=== PATIENT | female | born 1960 | race Caucasian/White ===

== ENCOUNTER 2018-02-06 14:03 | Emergency (ER) | payer BC, SELFPAY ==
[2018-02-06 14:04] VITALS: BP 122/75; PULSE 88; RESP 14; TEMP 36.4; O2SAT 100; BMI 23.0
--- NOTE | 2018-02-06 14:37 | RAD_ITS ---
STUDY: X-RAY - RIGHT ELBOW REASON FOR EXAM: Female, 57 years old. Pain and swelling following a bug bite. TECHNIQUE: 3 view(s) of the elbow. COMPARISON: None. FINDINGS: Normal visualized humerus, radius and ulna. Normal radiocapitellar and ulnotrochlear articulations. Soft tissue swelling. RAD/Elbow min 3 Views IMPRESSION: Soft tissue swelling. Electronically Signed: Miguel Benavides MD at 14:45 EDT Tel [phone], Service support ,
--- NOTE | 2018-02-06 14:47 | ED.DCSUM_ITS ---
- ER Visit Summary Date of Service: 02/06/18 Chief Complaint: Right elbow pain, lab test questions History of Present Illness: The patient is a 57 F department with intermittent redness of her right elbow. Patient states she had about 4 or 5 months ago. She was seen at an urgent care and put on antibiotics and an Chevy wrap. She states it drained and resolved. States from time to time, she will get some mild redness of the area. The patient is also concerned because she had outpatient blood work done. She does follow with physician in the [facility]. She was concerned because her MCV was 102 and she had liver functions in the 50s. She did not know if she needed more investigation. The patient does take Lamictal for history of bipolar disorder. She has been on this for 10 years. She denies any other systemic symptoms. Physical Examination: Vital signs reviewed General: Well-nourished, well-developed Head: Normocephalic, atraumatic Eyes: Pupils equal and reactive, extraocular muscles intact Neck, supple, no lymphadenopathy Heart: Regular rate and rhythm Respiratory: No distress, clear bilaterally Abdomen: Soft, nontender, nondistended, no peritoneal signs Back: Nontender Extremities: Nontender, no edema, no cords, minimal erythema of the right olecranon process, no cellulitis, no streaking, no fluctuance Skin: Normal color no rash Neuro: Alert and oriented, no focal or lateralizing deficits Test Results: [] Emergency Department Course and Treatment: The patient does have a small area of erythema on the elbow. There is no significant bursal inflammation. I did obtain x-rays which demonstrate soft tissue swelling but no fracture. There is no evidence of osteomyelitis. I do feel that she has recurrent mild bursitis. The patient will be treated with Keflex. I did spend time going over her lab work and I do feel that she is safe for outpatient therapy. She will be discharged home. Treatment Plan: [] Disposition: [] Impression: Urge 1. Right elbow bursitis This note was generated with [employer] dictation software. It may contain incorrect words, spelling, and punctuation that were not noted in review of the chart prior to signing ED Disposition - Plan for ED Patient: Chief Complaint: Upper Extremity Injury Instructions: ED Bursitis Elbow Olecranon Prescriptions: Cephalexin [Keflex] 500 mg PO Q6 #40 cap Referrals: Cebul,Issa A III, MD [Primary Care Provider] -
== END 2018-02-06 15:35 | disposition home or self-care (01) ==
PROVIDERS: Emergency Provider Emergency Medicine; PCP Family Medicine
DX: M71.521 Other bursitis, not elsewhere classified, right elbow (principal); F31.9 Bipolar disorder, unspecified
CPT/HCPCS: 73080; 99282